=== PATIENT | female | born 1970 | race Caucasian/White ===

== ENCOUNTER → 2018-01-28 10:57 | Outpatient (CLI) | payer OTHER, SELFPAY ==
--- NOTE | 2018-01-28 | CER_PTH ---
PATIENT: JACQUI SINGH LOC: [facility] U#:[id number] AGE/SX: 54/F ROOM: RE01/28/[address]: Dr. Gary Giles MD : [id number] BED: DIS: SPEC #: [id number] RECD: 01/28/18 14:31 STATUS: DHRUV VIRY #: [id number] AMANDO: 01/28/18 00:[address]: Gary Giles DEPT: SURGICAL PATHOLOGY RECD BY: Gary Rogel Tissues: Uterine cervix, NOS Procedures: Surgery Specimen Level IV HEADER OPERATION: Cyst removal PRE-OP DIAGNOSIS: Cervical cyst TISSUE SUBMITTED: Cervical cyst MICROSCOPIC DIAGNOSIS Cervical cyst, biopsy: Fragments of benign endocervical epithelium and mucous. See comment. SHAYY:afua 01/29/18 COMMENT The findings may represent ruptured cyst. MICROSCOPIC DESCRIPTION Slides are reviewed. GROSS DESCRIPTION Received in fixative is one container labeled with the patient's name and designated cervical cyst. The specimen consists of multiple fragments of molina hemorrhagic mucoid tissue that in aggregate measure 3 x 2.5 x 0.3 cm. The specimen is totally submitted in one cassette. / SJ:rg 01/28/18 TC:5 CPT: 02010
== END ==
PROVIDERS: Visit Provider Obstetrics & Gynecology
DX: N84.1 Polyp of cervix uteri (principal)
CPT/HCPCS: 88305